=== PATIENT | female | born 1975 | race Caucasian/White ===

== ENCOUNTER 2017-08-21 09:23 | Emergency (ER) | payer OTHER, SELFPAY ==
[2017-08-21 09:31] VITALS: BP 132/89; PULSE 96; RESP 20; TEMP 36.5; O2SAT 97; BMI 26.6
--- NOTE | 2017-08-21 09:39 | CT_ITS ---
CT head/brain wo con HISTORY: Severe headache ITS.REASON: MIGRAINE X 5 DAYS ORDERING PHYSICIAN: Nallely Mcclelland MD PATIENT AGE: 42 years COMPARISON: None TECHNIQUE: Axial images obtained without contrast. Brain and bone windows reviewed. FINDINGS: No midline shift, mass effect, intracranial hemorrhage, hydrocephalus, or extra-axial fluid collection is evident. There is some nonspecific slight decreased attenuation in the subcortical white matter and parietal lobes. May be better evaluated with MRI. The calvarium has an unremarkable appearance. No mastoid effusion. No sinus air-fluid levels.. IMPRESSION: 1. No definite acute intracranial findings. No intracranial hemorrhage. 2. Nonspecific white matter changes in the parietal lobes bilaterally. This may be better evaluated with MRI without and with contrast
--- NOTE | 2017-08-21 09:55 | HMH.EDGENADL ---
ED Disposition Clinical Impression: Migraine, White matter changes Disposition: Home, Self-Care Condition on Discharge: Good Additional Instructions: The patient felt better and wanted to be discharged. I informed her of her abnormal CT scan that requires a follow up MRI. I gave her a copy of the CT scan so she can present to her primary care physician. She will be given Imitrex pills to use at home. He is to return if she feels worse again. Prescriptions: SUMAtriptan succinate [Imitrex 25mg Tablet] 0 mg PO BIDP PRN #6 tab PRN Reason: Headache Referrals: Mayco Guzman [Primary Care Provider] - Forms: Work/School Release - Critical Care Critical Care Time: No Attestation: On , the high probability of a clinically significant, sudden or life threatening deterioration of the following system(s) required my full and direct attention, intervention and personal management. The time I documented below is in addition to time spent performing reported procedures but includes the following listed in this critical care notation. Medical Decision Making - Medical Records Medical records reviewed: Yes: I reviewed the patient's medical records. Vital Signs: 08/21/17 09:31 Temperature 97.7 F Temperature Source Oral Pulse Rate [Right Brachial] 96 H Respiratory Rate 20 Blood Pressure [Right Arm] 132/89 Blood Pressure Mean [Right Arm] 103 Blood Pressure Source [Right Arm] Automatic Cuff Blood Pressure Position [Right Arm] Sitting 02 Sat by Pulse Oximetry 97 Oxygen Delivery Method Room Air Orders (Tests/Meds): ED MEDICATIONS Generic Name Dose Route Start Last Admin Trade Name Freq PRN Reason Stop Dose Admin Sumatriptan Succinate 6 mg 08/21/17 09:40 Imitrex 6mg/0.5ml Vial SQ 08/21/17 09:41 ONCE ONE - CT Data Time Received: 12:[address] Reviewed: Yes: I have viewed the radiologist's interpretation Preliminary Findings: Abnormal Findings Narrative: IMPRESSION: 1. No definite acute intracranial findings. No intracranial hemorrhage. 2. Nonspecific white matter changes in the parietal lobes bilaterally. This may be better evaluated with MRI without and with contrast - Luis Inquiry Pt receiving controlled substance: No Luis was queried for this patient: No Medical Decision Making Narrative: The patient felt better and wanted to be discharged. I made a copy of the official report and gave to the patient so she can follow-up with a primary care physician with an MRI on abnormal white matter changes. IMPRESSION: 1. No definite acute intracranial findings. No intracranial hemorrhage. 2. Nonspecific white matter changes in the parietal lobes bilaterally. This may be better evaluated with MRI without and with contrast General Adult HPI - General Chief complaint: PAIN Stated complaint: headache x 5 days Mode of Arrival: Ambulatory Limitations: No Limitations Description of Symptoms (Recalled from ER Triage Doc. by RN): MIGRAINE X 5 DAYS - History of Present Illness HPI narrative: 42 years old white female with history of asthma and migraine. She has been having migraines since her child. It is usually once a month. Recently it has been getting less every 2 months. For the past 5 days she has been experiencing right sided migraine associated with photophobia, she denies vomiting. Denies having fever or chills. Denies having neck rigidity or stiffness. Denies having numbness or tingling of the upper or lower extremity. She denies of urine or bowel control. She has used Excedrin migraine with no relief. Onset (ago): day(s) (5 days.) Location: head Radiation: non-radiation Severity: moderate Quality: aching, dull Consistency: constant Relieving factors: none Exacerbating factors: other (Light. ) Associated symptoms: headaches Treatments prior to arrival: NSAID - Related Data Home Medications Medication Instructions Recorded Confirmed Norethindrone [Patrizia
--- NOTE | 2017-08-21 10:00 | ED_ITS ---
ED Disposition Clinical Impression: Migraine, White matter changes Disposition: Home, Self-Care Condition on Discharge: Good Additional Instructions: The patient felt better and wanted to be discharged. I informed her of her abnormal CT scan that requires a follow up MRI. I gave her a copy of the CT scan so she can present to her primary care physician. She will be given Imitrex pills to use at home. He is to return if she feels worse again. Prescriptions: SUMAtriptan succinate [Imitrex 25mg Tablet] 0 mg PO BIDP PRN #6 tab PRN Reason: Headache Referrals: Mayco Guzman [Primary Care Provider] - Forms: Work/School Release - Critical Care Critical Care Time: No Attestation: On , the high probability of a clinically significant, sudden or life threatening deterioration of the following system(s) required my full and direct attention, intervention and personal management. The time I documented below is in addition to time spent performing reported procedures but includes the following listed in this critical care notation. Medical Decision Making - Medical Records Medical records reviewed: Yes: I reviewed the patient's medical records. Vital Signs: 08/21/17 09:31 Temperature 97.7 F Temperature Source Oral Pulse Rate [Right Brachial] 96 H Respiratory Rate 20 Blood Pressure [Right Arm] 132/89 Blood Pressure Mean [Right Arm] 103 Blood Pressure Source [Right Arm] Automatic Cuff Blood Pressure Position [Right Arm] Sitting 02 Sat by Pulse Oximetry 97 Oxygen Delivery Method Room Air Orders (Tests/Meds): ED MEDICATIONS Generic Name Dose Route Start Last Admin Trade Name Freq PRN Reason Stop Dose Admin Sumatriptan Succinate 6 mg 08/21/17 09:40 Imitrex 6mg/0.5ml Vial SQ 08/21/17 09:41 ONCE ONE - CT Data Time Received: 12:[address] Reviewed: Yes: I have viewed the radiologist's interpretation Preliminary Findings: Abnormal Findings Narrative: IMPRESSION: 1. No definite acute intracranial findings. No intracranial hemorrhage. 2. Nonspecific white matter changes in the parietal lobes bilaterally. This may be better evaluated with MRI without and with contrast - Luis Inquiry Pt receiving controlled substance: No Luis was queried for this patient: No Medical Decision Making Narrative: The patient felt better and wanted to be discharged. I made a copy of the official report and gave to the patient so she can follow- up with a primary care physician with an MRI on abnormal white matter changes. IMPRESSION: 1. No definite acute intracranial findings. No intracranial hemorrhage. 2. Nonspecific white matter changes in the parietal lobes bilaterally. This may be better evaluated with MRI without and with contrast General Adult HPI - General Chief complaint: PAIN Stated complaint: headache x 5 days Mode of Arrival: Ambulatory Limitations: No Limitations Description of Symptoms (Recalled from ER Triage Doc. by RN): MIGRAINE X 5 DAYS - History of Present Illness HPI narrative: 42 years old white female with history of asthma and migraine. She has been having migraines since her child. It is usually once a month. Recently it has been getting less every 2 months. For the past 5 days she has been experiencing right sided migraine associated with photophobia, she denies vomiting. Denies having fever or chills. Denies havi
[2017-08-21 12:18] VITALS: BP 132/90; PULSE 82; RESP 18; TEMP 37; O2SAT 98
== END 2017-08-21 12:18 | disposition home or self-care (01) ==
PROVIDERS: Emergency Provider Emergency Medicine; PCP Family Medicine
DX: G43.909 Migraine, unspecified, not intractable, without status migrainosus (principal); Z88.0 Allergy status to penicillin
CPT/HCPCS: 70450; 99281

== ENCOUNTER 2017-09-07 11:26 | Emergency (ER) | payer OTHER, SELFPAY ==
[2017-09-07 11:53] VITALS: BP 136/85; PULSE 96; RESP 20; TEMP 37.1; O2SAT 98; BMI 27.3
[2017-09-07 12:12] LABS: UTC Influenza A Antigen Negative (Negative); UTC Influenza B Antigen Negative (Negative)
--- NOTE | 2017-09-07 12:21 | HMH.EDUTC ---
[facility] [place] Clinical Impression: URI (upper respiratory infection) Qualifiers: URI type: unspecified URI Qualified Code(s): J06.9 - Acute upper respiratory infection, unspecified Disposition: Home, Self-Care Condition on Discharge: Good Instructions: DI for Cough -- Adult Additional Instructions: * Monitor Temp. Tylenol and/or Ibuprofen as needed. ER if fever is no less than 101 despite alternating Tylenol and Ibuprofen * Encourage fluids, water, Gatorade, powerade, pedialyte if /toddler/or child * Warm salt water gargles for throat irritation *Warm fluids *Sore throat lozenges *Sleep elevated *humidifier or vaporizer Lots of rest Increase fluids, water, Gatorade, powerade * *Your throat swab was sent to lab for culture. Those results area typically sent to your primary care physician. Be sure to follow up in 2-3 days if no improvement so they can review those results and treat if necessary If you dont have primary care I recommend you get one, but in the mean time you will have to return to a walk in clinic Follow up IMMEDIATELY for new or worsening of symptoms OR no noticeable improvement over the next 48-72 hours. 911 immediately for any life threatening symptoms such as chest pain or difficulty breathing Prescriptions: Brompheniramine/Pseudoephed/Dm [Bromfed DM Cough Syrup 5mL] 10 ml PO Q4HP PRN #300 ml PRN Reason: Cough Azithromycin [Z-Archie 250mg Tab] 250 mg PO UD DOSE PK #6 tab Fluticasone Propionate [Flonase 50mcg nasal spray 16gm] 2 spr NS DAILY #1 bottle predniSONE [Prednisone 20mg Tab] 20 mg PO BID #10 tab Referrals: Mayco Guzman [Primary Care Provider] - Forms: Work/School Release Time of Disposition: 12:36 Medical Decision Making - Medical Records Medical records reviewed: Yes: I reviewed the patient's medical records. Vital Signs: 09/07/17 11:53 Temperature 98.8 F Temperature Source Temporal Artery Scan Pulse Rate [Right] 96 H Respiratory Rate 20 Blood Pressure [Right Arm] 136/85 Blood Pressure Mean [Right Arm] 102 Blood Pressure Position [Right Arm] Sitting 02 Sat by Pulse Oximetry 98 Oxygen Delivery Method Room Air - Lab Data Lab results reviewed: Yes: I reviewed the patient's lab results. Lab Results 09/07/17 11:58: Influenza Type A Ag Negative, Influenza Type B Ag Negative - Luis Inquiry Pt receiving controlled substance: No Luis was queried for this patient: No [facility] [place] - General Stated complaint: trouble breathing cough Mode of Arrival: Ambulatory Source of Information: Patient Limitations: No Limitations Description of Symptoms (Recalled from Triage Doc. by RN): COUGH, CONGESTION HEENT Symptoms (Recalled from RN notes): Yes Resp Symptoms (Recalled from RN notes): No Skin Symptoms (Recalled from RN notes): No MS Symptoms (Recalled from RN notes): No Functional Status (Recalled from RN notes): N - History of Present Illness Provider Complaint: Patient states that she has had cough and nasal congestion State that when she lays down she can feel something running down her throat like drainage State that her throat is sore and irritated State that it is sore and hurts when she swallows State that when she lays down her cough is worse so she came in to be seen - Related Data Home Medications Medication Instructions Recorded Confirmed Norethindrone [Sharobel] 1 tab PO DAILY 08/21/17 08/21/17 Previous Rx's Medication Instructions Recorded SUMAtriptan succinate [Imitrex 0 mg PO BIDP PRN #6 tab 08/21/17 25mg Tablet] Azithromycin [Z-Archie 250mg Tab] 250 mg PO UD DOSE PK #6 tab 09/07/17 Brompheniramine/Pseudoephed/Dm 10 ml PO Q4HP PRN #300 ml 09/07/17 [Bromfed DM Cough Syrup 5mL] Fluticasone Propionate [Flonase 2 spr NS DAILY #1 bottle 09/07/17 50mcg nasal spray 16gm] predniSONE [Prednisone 20mg 20 mg PO BID #10 tab 09/07/17 Tab] Allergies Allergy/AdvReac Type Severity Reaction Status Date / Time Penicillins Allergy Mi
--- NOTE | 2017-09-07 12:29 | ED_ITS ---
[facility] [place] Disposition Clinical Impression: URI (upper respiratory infection) Qualifiers: URI type: unspecified URI Qualified Code(s): J06.9 - Acute upper respiratory infection, unspecified Disposition: Home, Self-Care Condition on Discharge: Good Instructions: DI for Cough -- Adult Additional Instructions: * Monitor Temp. Tylenol and/or Ibuprofen as needed. ER if fever is no less than 101 despite alternating Tylenol and Ibuprofen * Encourage fluids, water, Gatorade, powerade, pedialyte if infant/toddler/or child * Warm salt water gargles for throat irritation *Warm fluids *Sore throat lozenges *Sleep elevated *humidifier or vaporizer Lots of rest Increase fluids, water, Gatorade, powerade * *Your throat swab was sent to lab for culture. Those results area typically sent to your primary care physician. Be sure to follow up in 2-3 days if no improvement so they can review those results and treat if necessary If you don? t have primary care I recommend you get one, but in the mean time you will have to return to a walk in clinic Follow up IMMEDIATELY for new or worsening of symptoms OR no noticeable improvement over the next 48-72 hours. 911 immediately for any life threatening symptoms such as chest pain or difficulty breathing Prescriptions: Brompheniramine/Pseudoephed/Dm [Bromfed DM Cough Syrup 5mL] 10 ml PO Q4HP PRN # 300 ml PRN Reason: Cough Azithromycin [Z-Archie 250mg Tab] 250 mg PO UD DOSE PK #6 tab Fluticasone Propionate [Flonase 50mcg nasal spray 16gm] 2 spr NS DAILY #1 bottle predniSONE [Prednisone 20mg Tab] 20 mg PO BID #10 tab Referrals: Mayco Guzman [Primary Care Provider] - Forms: Work/School Release Time of Disposition: 12:36 Medical Decision Making - Medical Records Medical records reviewed: Yes: I reviewed the patient's medical records. Vital Signs: 09/07/17 11:53 Temperature 98.8 F Temperature Source Temporal Artery Scan Pulse Rate [Right] 96 H Respiratory Rate 20 Blood Pressure [Right Arm] 136/85 Blood Pressure Mean [Right Arm] 102 Blood Pressure Position [Right Arm] Sitting 02 Sat by Pulse Oximetry 98 Oxygen Delivery Method Room Air - Lab Data Lab results reviewed: Yes: I reviewed the patient's lab results. Lab Results 09/07/17 11:58: Influenza Type A Ag Negative, Influenza Type B Ag Negative - Luis Inquiry Pt receiving controlled substance: No Luis was queried for this patient: No [facility] [place] HPI - General Stated complaint: trouble breathing cough Mode of Arrival: Ambulatory Source of Information: Patient Limitations: No Limitations Description of Symptoms (Recalled from Triage Doc. by RN): COUGH, CONGESTION HEENT Symptoms (Recalled from RN notes): Yes Resp Symptoms (Recalled from RN notes): No Skin Symptoms (Recalled from RN notes): No MS Symptoms (Recalled from RN notes): No Functional Status (Recalled from RN notes): N - History of Present Illness Provider Complaint: Patient states that she has had cough and nasal congestion State that when she lays down she can feel something running down her throat like drainage State that her throat is sore and irritated State that it is sore and hurts when she swallows State that when she lays down her cough is worse so she came in to be seen - Related Data Home Medications Medication Instructions Recorded Confirmed Norethindrone [Sharobel] 1 tab PO DAILY 08/21/17 08/21/17 Previous Rx's
[2017-09-07 12:40] VITALS: BP 122/88; PULSE 88; RESP 18; TEMP 37
== END 2017-09-07 12:41 | disposition home or self-care (01) ==
PROVIDERS: Emergency Provider Nurse Practitioner; PCP Family Medicine
DX: J06.9 Acute upper respiratory infection, unspecified (principal)
CPT/HCPCS: 87804; 99202

== ENCOUNTER 2017-09-17 12:26 | Emergency (ER) | payer OTHER, SELFPAY ==
[2017-09-17 12:52] VITALS: BP 117/80; PULSE 84; RESP 20; TEMP 36.8; O2SAT 98; BMI 27.3
--- NOTE | 2017-09-17 13:02 | XR_ITS ---
XR knee RT 2V Ordering Physician: Estelle Hawk Patient Age: 42 years: Female HISTORY: ITS.REASON: pain and swelling in right knee TECHNIQUE: 3 views of the right knee. COMPARISON :None FINDINGS No fracture nor dislocation. The bones well mineralized. No joint effusion. Normal relationships. Joint spaces well-maintained. Tiny flabella accessory ossicle posteriorly. IMPRESSION: == Right knee intact no fracture. No joint effusion.
--- NOTE | 2017-09-17 13:02 | HMH.EDUTC ---
[facility] [place] Clinical Impression: Muscle spasm Knee pain Qualifiers: Chronicity: unspecified Laterality: right Qualified Code(s): M25.561 - Pain in right knee Disposition: Home, Self-Care Condition on Discharge: Good Instructions: How To Perform RICE (Rest, Ice, Compress, Elevate), DI for Knee Pain, DI for Muscle Spasm Additional Instructions: Use muscle rubs such as biofreeze may help with sore muscles Take medication as prescribed Follow up with family doctor in 12-48 hours if no improvement or worsening of symptoms Return if needed *RICE, Rest the extremity, Ice 15-20 minutes 3-4 times daily, Compress- wear the akin wrap as discussed as much as possible to help reduce swelling and pain, Elevate the extremity when at rest *Akin wrap is for support and help control swelling, use it except in the shower. Be sure that is not to tight but not to loose either *Elevate when resting *Ibuprofen every 6-8 hours as needed for pain an inflammation. If need something more can take Tylenol in between doses of Ibuprofen to help Immediately follow up for new or worsening of symptoms, or no noticeable improvement over the next 3-5 days Prescriptions: Cyclobenzaprine HCl [Flexeril 10mg tablet] 10 mg PO Q8H PRN #15 tab PRN Reason: Muscle Spasm Ibuprofen [Ibuprofen 600mg Tab] 600 mg PO Q6H PRN #20 tab PRN Reason: Moderate Pain Referrals: Mayco Guzman [Primary Care Provider] - Logan Zamudio MD [Staff Physician] - Pierre Green MD [Staff Physician] - Time of Disposition: 14:10 Medical Decision Making - Medical Records Medical records reviewed: Yes: I reviewed the patient's medical records. Vital Signs: 09/17/17 12:52 Temperature 98.2 F Temperature Source Temporal Artery Scan Pulse Rate [Right Brachial] 84 Respiratory Rate 20 Blood Pressure [Right Arm] 117/80 Blood Pressure Mean [Right Arm] 92 Blood Pressure Source [Right Arm] Automatic Cuff Blood Pressure Position [Right Arm] Sitting 02 Sat by Pulse Oximetry 98 Oxygen Delivery Method Room Air Orders (Tests/Meds): ORDERS Category Date Time Status Knee XR right 2 views [XR knee RT 2V] Stat Exams 09/17/17 13:02 Taken - Radiology Data #1 Image Reviewed: Yes I reviewed the patient's radiology results Preliminary Findings: No Fracture Seen No fracture seen Patient placed in knee immobilizer advised will call back if any different reading by radiologist - Luis Inquiry Pt receiving controlled substance: No Luis was queried for this patient: No [facility] [place] - General Stated complaint: Shoulder Burning & back;swollen knee Mode of Arrival: Family Vehicle Source of Information: Patient Limitations: No Limitations Description of Symptoms (Recalled from Triage Doc. by RN): C/O RIGHT KNEE PAIN AND LEFT SHOULDER PAIN HEENT Symptoms (Recalled from RN notes): No Resp Symptoms (Recalled from RN notes): No Skin Symptoms (Recalled from RN notes): No MS Symptoms (Recalled from RN notes): (RIGHT KNEE AND LEFT SHOUILDER PAIN) Functional Status (Recalled from RN notes): N/A - History of Present Illness Provider Complaint: Patient state that she recently started a new job and she feels like she is having muscle spasms in left shoulder area and pain and swelling in right knee State that she has not hurt her knee that she is aware of but having pain and swelling for last week or two - Related Data Previous Rx's Medication Instructions Recorded Cyclobenzaprine HCl [Flexeril 10mg 10 mg PO Q8H PRN #15 tab 09/17/17 tablet] Ibuprofen [Ibuprofen 600mg Tab] 600 mg PO Q6H PRN #20 tab 09/17/17 Allergies Allergy/AdvReac Type Severity Reaction Status Date / Time Penicillins Allergy Mild Verified 08/21/17 09:39 - Worker's Comp Is this a Worker's Comp case?: No [facility] History I have reviewed the patient's past medical history: Yes Medical History: Denies:: Diabetes Mellitus Type 1 - Social History Smoking Status: Current every day s
--- NOTE | 2017-09-17 13:07 | ED_ITS ---
[facility] [place]position Clinical Impression: Muscle spasm Knee pain Qualifiers: Chronicity: unspecified Laterality: right Qualified Code(s): M25.561 - Pain in right knee Disposition: Home, Self-Care Condition on Discharge: Good Instructions: How To Perform RICE (Rest, Ice, Compress, Elevate), DI for Knee Pain, DI for Muscle Spasm Additional Instructions: Use muscle rubs such as biofreeze may help with sore muscles Take medication as prescribed Follow up with family doctor in 12-48 hours if no improvement or worsening of symptoms Return if needed *RICE, Rest the extremity, Ice 15-20 minutes 3-4 times daily, Compress- wear the akin wrap as discussed as much as possible to help reduce swelling and pain, Elevate the extremity when at rest *Akin wrap is for support and help control swelling, use it except in the shower. Be sure that is not to tight but not to loose either *Elevate when resting *Ibuprofen every 6-8 hours as needed for pain an inflammation. If need something more can take Tylenol in between doses of Ibuprofen to help Immediately follow up for new or worsening of symptoms, or no noticeable improvement over the next 3-5 days Prescriptions: Cyclobenzaprine HCl [Flexeril 10mg tablet] 10 mg PO Q8H PRN #15 tab PRN Reason: Muscle Spasm Ibuprofen [Ibuprofen 600mg Tab] 600 mg PO Q6H PRN #20 tab PRN Reason: Moderate Pain Referrals: Mayco Guzman [Primary Care Provider] - Logan Zamudio MD [Staff Physician] - Pierre Green MD [Staff Physician] - Time of Disposition: 14:10 Medical Decision Making - Medical Records Medical records reviewed: Yes: I reviewed the patient's medical records. Vital Signs: 09/17/17 12:52 Temperature 98.2 F Temperature Source Temporal Artery Scan Pulse Rate [Right Brachial] 84 Respiratory Rate 20 Blood Pressure [Right Arm] 117/80 Blood Pressure Mean [Right Arm] 92 Blood Pressure Source [Right Arm] Automatic Cuff Blood Pressure Position [Right Arm] Sitting 02 Sat by Pulse Oximetry 98 Oxygen Delivery Method Room Air Orders (Tests/Meds): ORDERS Category Date Time Status Knee XR right 2 views [XR knee RT 2V] Stat Exams 09/17/17 13:02 Taken - Radiology Data #1 Image Reviewed: Yes I reviewed the patient's radiology results Preliminary Findings: No Fracture Seen No fracture seen Patient placed in knee immobilizer advised will call back if any different reading by radiologist - Luis Inquiry Pt receiving controlled substance: No Luis was queried for this patient: No [facility] [place] HPI - General Stated complaint: Shoulder Burning & back;swollen knee Mode of Arrival: Family Vehicle Source of Information: Patient Limitations: No Limitations Description of Symptoms (Recalled from Triage Doc. by RN): C/O RIGHT KNEE PAIN AND LEFT SHOULDER PAIN HEENT Symptoms (Recalled from RN notes): No Resp Symptoms (Recalled from RN notes): No Skin Symptoms (Recalled from RN notes): No MS Symptoms (Recalled from RN notes): (RIGHT KNEE AND LEFT SHOUILDER PAIN) Functional Status (Recalled from RN notes): N/A - History of Present Illness Provider Complaint: Patient state that she recently started a new job and she feels like she is having muscle spasms in left shoulder area and pain and swelling in right knee State that she has not hurt her knee that she is aware of but having pain and swelling for last week or two - Related Data Previous Rx's M
[2017-09-17 14:15] VITALS: BP 120/82; PULSE 88; RESP 20; TEMP 36.6; O2SAT 98
== END 2017-09-17 14:16 | disposition home or self-care (01) ==
PROVIDERS: Emergency Provider Nurse Practitioner; PCP Family Medicine
DX: M25.561 Pain in right knee (principal); M62.831 Muscle spasm of calf; F17.210 Nicotine dependence, cigarettes, uncomplicated
CPT/HCPCS: 29505; 73560; 99202

== ENCOUNTER 2021-10-25 16:00 | Emergency (ER) | payer MEDICAID, SELFPAY ==
[2021-10-25 16:02] VITALS: BP 103/86; PULSE 100; RESP 18; TEMP 36.4; O2SAT 98; BMI 28.7
[2021-10-25 16:09] VITALS: BMI 28.7
--- NOTE | 2021-10-25 16:09 | PC.NURSE ---
ED MD at
--- NOTE | 2021-10-25 16:14 | XR_ITS ---
PROCEDURE INFORMATION: Exam: XR Right Foot Exam date and time: 10/25/2021 4:19 PM Age: 46 years old Clinical indication: Pain; Foot; Right; Additional info: Tender and bruise along lateral dorsal foot TECHNIQUE: Imaging protocol: XR Right foot. Views: 3 or more views. COMPARISON: [id number] XR foot RT min 3V 04/18/2018 1:50 PM FINDINGS: Bones/joints: Normal anatomic alignment and bone density. No acutely displaced fracture or dislocation. No aggressive osseous lesion. Soft tissues: No significant soft tissue swelling. IMPRESSION: No acute skeletal pathology.
--- NOTE | 2021-10-25 16:14 | XR_ITS ---
PROCEDURE INFORMATION: Exam: XR Right Ankle Exam date and time: 10/25/2021 4:16 PM Age: 46 years old Clinical indication: Pain; Ankle; Right; Additional info: Pain after twisting ankle along lateral malleolus TECHNIQUE: Imaging protocol: XR Right ankle. Views: 3 or more views. COMPARISON: CR ANKCMRT XR ankle RT min 3V 04/18/2018 1:47 PM FINDINGS: Bones/joints: Normal anatomic alignment and bone density. No acutely displaced fracture or dislocation. No aggressive osseous lesions. Soft tissues: No significant soft tissue swelling. IMPRESSION: No acute skeletal pathology.
--- NOTE | 2021-10-25 16:15 | [facility].EDGENADL ---
ED Disposition Clinical Impression: Ankle sprain Disposition: Home, Self-Care Condition on Discharge: Fair Instructions: DI for Acute Pain -- Adult Referrals: Jose Guzman DO [Primary Care Provider] - - Critical Care Critical Care Time: No Attestation: On , the high probability of a clinically significant, sudden or life threatening deterioration of the following system(s) required my full and direct attention, intervention and personal management. The time I documented below is in addition to time spent performing reported procedures but includes the following listed in this critical care notation. Medical Decision Making - Luis Inquiry Pt receiving controlled substance: Yes Luis was queried for this patient: No Risks and benefits of using a controlled substance: were not discussed with pt by me Vital Signs: 10/25/21 16:02 Temperature 97.6 F Temperature Source Oral Pulse Rate [Radial] 100 H Respiratory Rate 18 Blood Pressure [Right Arm] 103/86 L Blood Pressure Mean [Right Arm] 91 Blood Pressure Position [Right Arm] Sitting 02 Sat by Pulse Oximetry 98 Oxygen Delivery Method Room Air Orders (Tests/Meds): ED MEDICATIONS Discontinued Medications Generic Name Dose Route Start Last Admin Trade Name Freq PRN Reason Stop Dose Admin Acetaminophen 500 mg 10/25/21 16:22 10/25/21 16:23 Acetaminophen 500mg Tab PO 10/25/21 16:23 500 mg ONCE ONE Administration Ketorolac Tromethamine 15 mg 10/25/21 16:14 10/25/21 16:22 Ketorolac 30mg/Ml Vial IM 10/25/21 16:15 15 mg ONCE ONE Administration Medical Decision Narrative: Differential diagnosis includes but is not limited to fracture, dislocation, ankle sprain. Hemodynamically stable, neurovascularly intact. Patient was given Toradol, Tylenol here in the ED. Will obtain x-rays to further assess. XR without acute bony injuries such as fracture or dislocation. Also given x1 oxycodone 5 mg for persistent pain in ED. Remains NV intact. Air splint provided and applied in ED. Given strict ED return precautions. General Adult HPI - General Stated complaint: AO [id number] injuredR ankle Time Seen by Provider: 10/25/21 16:17 - History of Present Illness HPI narrative: 46-year-old female presents for evaluation of right foot pain. Patient reports that [place] was [place] at night when she was walking up a hill and accidentally twisted her right ankle inward against the ground. Reports that since then, she has had increased swelling along her right lateral ankle as well as ankle and foot pain. Patient denies other injury. Patient states she has been applying ice, warm compresses, taking Tylenol and ibuprofen, elevating her right lower extremity, without improvement of the pain. - Related Data Previous Rx's Medication Instructions Recorded Cyclobenzaprine HCl [Flexeril 10mg 10 mg PO Q8H PRN #15 tab 09/17/17 tablet] Ibuprofen [Ibuprofen 600mg Tab] 600 mg PO Q6H PRN #20 tab 09/17/17 Allergies Allergy/AdvReac Type Severity Reaction Status Date / Time Penicillins Allergy Mild Verified 08/21/17 09:39 naproxen Allergy Verified 04/18/18 13:26 [facility] History - Hepatitis A Screen Attestation statement:: This patient has been screened for Hepatitis A risk factors. Medical History: Denies:: Diabetes Mellitus Type 1, Diabetes Mellitus Type 2, Gastrointestinal Bleed, Hypertension, Renal Disease, Ulcer Other Surgeries: Yes: Cholecystectomy - Social History Smoking Status: Current every day smoker Tobacco Type: cigarettes Alcohol Intake: never ROS Obtained: Yes Systems reviewed as appropriate & no additional complaints - Musculoskeletal Musculoskeletal: Reports abnormal gait, Reports joint pain, Reports joint swelling Physical Exam - General General appearance: alert, in no apparent distress - Head Head exam: atraumatic - Eye Eye exam: Present: normal appearance. Absent: scleral icteru
--- NOTE | 2021-10-25 16:21 | PC.NURSE ---
ICE PACK APPLIED TO RT ANKLE
[2021-10-25 17:21] VITALS: BP 145/74; PULSE 78; RESP 16; TEMP 36.8; O2SAT 98
== END 2021-10-25 17:23 | disposition home or self-care (01) ==
PROVIDERS: Emergency Provider Student in an Organized Health Care Education/Training Program; PCP Family Medicine
DX: S93.491A Sprain of other ligament of right ankle, initial encounter (principal); M79.671 Pain in right foot; F17.210 Nicotine dependence, cigarettes, uncomplicated; Z88.0 Allergy status to penicillin; Z88.8 Allergy status to other drugs, medicaments and biological substances; X50.1XXA Overexertion from prolonged static or awkward postures, initial encounter
CPT/HCPCS: 29515; 73610; 73630; 99284